=== PATIENT | female | born 1980 | race Two or more races ===

== ENCOUNTER → 2023-12-18 | Emergency (ER) | payer OTHER ==
[~2023-12-18] VITALS: Ht 167.6 cm; Wt 63.5 kg
== END | disposition home or self-care (01) ==
LOC: ER 10:54
DX: R07.9 Chest pain, unspecified (principal); Z91.013 Allergy to seafood; Z91.041 Radiographic dye allergy status; W18.39XA Other fall on same level, initial encounter; Y93.89 Activity, other specified; Y92.481 Parking lot as the place of occurrence of the external cause; M12.532 Traumatic arthropathy, left wrist